=== PATIENT | female | born 1955 | race Two or more races ===

== ENCOUNTER 2019-10-17 19:09 | Inpatient (IN) | payer OTHER ==
[~2019-10-17] VITALS: Ht 170.2 cm; Wt 72.6 kg
[2019-10-17] MEDS ORDERED: METFORMIN HCL1000 M2 PO (19:25)
[2019-10-17] MEDS ORDERED: SINGULAIR10 MG PO (19:25)
[2019-10-17] MEDS ORDERED: GLIPIZIDE XL10 MG PO (19:25)
[2019-10-17] MEDS ORDERED: VENTOLIN HFA18 GM IH (19:25)
--- NOTE | 2019-10-17 19:25 | NUR ---
PT REFIERE ASMA QUE COMENZO DESDE HOY EN LA MANANA. REFIERE AN JOSE DANIEL A CDT EN LA MANANA Y AN RECIBIDO TERAPIA RESPIRATORIA ROSETTE NO TENER MEJORIA. PT SAO2 91%.SE UBICA EN ASMA UNIT.
--- NOTE | 2019-10-17 20:31 | NUR ---
PACIENTE EVALUADA POR MD EN TURNO DR. MERINO QUIEN COLOCA ORDENES MEDICAS. CorazonEugeniaANABELLEVIDYA ORIENTA PACIENTE SOBRE TRATAMIENTO ORDENADO POR MD.REFIERE COMPRENDER. COLECTA MUESTRAS DE LABORATORIOS LAS CUALES ROTULA Y ENVIA PARA ANALISIS. NOTIFICA ABGS A PERSONAL EN TURNO. ADMINISTRA MEDICAMENTOS KATIUSKA ORDENADO POR MD SIGUIENDO MEDIDAS ASEPTICAS. PACIENTE NO PRESENTA REACCION ADVERSA.
--- NOTE | 2019-10-17 21:51 | NUR ---
SE NOTIFICA AMY MASK AL 50% A PERSONAL EN TURNO.
--- NOTE | 2019-10-18 00:17 | NUR ---
PEAK FLOW NOTIFICADO A MS AMBROCIO POR MS STEVEN.
--- NOTE | 2019-10-18 04:02 | NUR ---
SE RECIBE PACIENTE ALERTA Y ORIENTADA X3 EN CAMA CON BARANDAS ELEVADAS Y CABECERA A 45 GRADOS CONECTADA A OXIMETRIA, TIENE UN V/MASK AL 50%, TIENE AREA DE VENOPUNCION PATENTE Y BRADEN DE EDEMA EN SALINE LOCK. PACIENTE ESTABLE, SE MANTIENE BAJO OBSERVACION POR CAMBIOS.
--- NOTE | 2019-10-18 07:34 | NUR ---
SE RECIBE PTE ALERTA Y ORIENTADA POR 3, LA MISMA SE ENCUENTRA CONECTADA A MONITOR CARDIACO Y OXIMETRIA DE PULSO. PTE SE OBSERVA CON VENTURY MASK 50% PTE PEND CONSULTA CON DR. Susanna RIVAS.
[2019-10-27] MEDS ORDERED: MEDROLPACK PO (14:11)
[2019-10-27] MEDS ORDERED: QVAR REDIHALE10.6 G1 IH (14:12)
[2019-10-27] MEDS ORDERED: XOPENEX0.63 MG/3 IH (14:12)
[2019-10-27] MEDS ORDERED: XOPENEX HFA15 GM IH (14:13)
== END 2019-10-27 15:08 | disposition home or self-care (01) | DRG 193 ==
LOC: ER 19:09 → ICU 10-18 10:17 → ICU-2 10-18 10:17 → ICU 10-19 21:36 → MEDJ 10-20 18:45
PROVIDERS: ADMIT Internal Medicine
PROC: BB24ZZZ Computerized Tomography (CT Scan) of Bilateral Lungs (ICD-10-PCS; principal; 2019-10-18)
PROC: 4A033R1 Measurement of Arterial Saturation, Peripheral, Percutaneous Approach (ICD-10-PCS; 2019-10-18)
PROC: 3E0F7GC Introduction of Other Therapeutic Substance into Respiratory Tract, Via Natural or Artificial Opening (ICD-10-PCS; 2019-10-18)
PROC: 8E0ZXY6 Isolation (ICD-10-PCS; 2019-10-18)
PROC: 0T9B70Z Drainage of Bladder with Drainage Device, Via Natural or Artificial Opening (ICD-10-PCS; 2019-10-18)
PROC: 4A12X4Z Monitoring of Cardiac Electrical Activity, External Approach (ICD-10-PCS; 2019-10-20)
PROC: B246ZZZ Ultrasonography of Right and Left Heart (ICD-10-PCS; 2019-10-22)
DX: J10.1 Influenza due to other identified influenza virus with other respiratory manifestations (principal); J80 Acute respiratory distress syndrome; J44.1 Chronic obstructive pulmonary disease with (acute) exacerbation; J45.41 Moderate persistent asthma with (acute) exacerbation; I47.2 Ventricular tachycardia; I08.2 Rheumatic disorders of both aortic and tricuspid valves; E11.65 Type 2 diabetes mellitus with hyperglycemia; E66.09 Other obesity due to excess calories; Z79.4 Long term (current) use of insulin

== ENCOUNTER 2021-09-21 10:04 | Emergency (ER) | payer OTHER ==
[~2021-09-21] VITALS: Ht 152.4 cm; Wt 68.5 kg
[~2021-09-21 10:04] MED LIST: GLIPIZIDE XL10 MG PO; MEDROLPACK PO; METFORMIN HCL1000 M2 PO; QVAR REDIHALE10.6 G1 IH; SINGULAIR10 MG PO; VENTOLIN HFA18 GM IH; XOPENEX HFA15 GM IH; XOPENEX0.63 MG/3 IH
== END 2021-09-21 14:48 | disposition home or self-care (01) ==
LOC: ER 10:04
DX: K29.90 Gastroduodenitis, unspecified, without bleeding (principal); J45.998 Other asthma; I10 Essential (primary) hypertension; E11.9 Type 2 diabetes mellitus without complications

== ENCOUNTER 2021-10-19 10:19 | Emergency (ER) | payer OTHER ==
[~2021-10-19] VITALS: Ht 167.6 cm; Wt 66.7 kg
== END 2021-10-19 16:16 | disposition home or self-care (01) ==
LOC: ER 10:19
DX: K52.89 Other specified noninfective gastroenteritis and colitis (principal); N39.0 Urinary tract infection, site not specified; I10 Essential (primary) hypertension; J45.998 Other asthma

== ENCOUNTER → 2022-07-30 | Emergency (ER) | payer OTHER ==
[~2022-07-30] VITALS: Ht 170.2 cm; Wt 66.7 kg
[~2022-07-30] MED LIST changes: +GLIMEPIRIDE1 MG
== END | disposition left against medical advice (07) ==
LOC: ER 17:49
DX: J45.901 Unspecified asthma with (acute) exacerbation (principal); E11.65 Type 2 diabetes mellitus with hyperglycemia; Z79.84 Long term (current) use of oral hypoglycemic drugs; I10 Essential (primary) hypertension; Z88.0 Allergy status to penicillin

== ENCOUNTER 2022-07-31 08:04 | Emergency (ER) | payer OTHER ==
[~2022-07-31] VITALS: Ht 170.2 cm; Wt 67.1 kg
== END 2022-07-31 12:41 | disposition home or self-care (01) ==
LOC: ER 08:04
DX: J45.909 Unspecified asthma, uncomplicated (principal); R06.02 Shortness of breath; R11.0 Nausea; Z88.0 Allergy status to penicillin

== ENCOUNTER 2022-11-24 13:09 | Outpatient (CLI) | payer OTHER | END 2022-11-24 13:10 | disposition home or self-care (01) | LOC: NUCLEAR 13:09 | PROVIDERS: ATTEND General Practice | DX: Z13.820 Encounter for screening for osteoporosis (principal) ==

== ENCOUNTER 2022-12-29 08:56 | Inpatient (IN) | payer OTHER ==
[~2022-12-29] VITALS: Ht 170.2 cm; Wt 68.0 kg
[2022-12-29] MEDS ORDERED: TRADJENTA5 MG (09:19)
--- NOTE | 2022-12-29 09:24 | NUR ---
PTE ALERTA Y ORIENTADA EN HARISH NAJMA ESFERAS, REFIERE ASMA LA CUAL SE LE EXACERBO EN LA MANANA DE HOY, CON TOS PRODUCTIVA, AL MOMENTO SATURANDO 92% Y [place] EN ORACIONES CORTAS, SE PRESENTA A DR JIMENEZ Y SE UBICA EN AREA DE AU.
--- NOTE | 2022-12-29 10:03 | NUR ---
SE ORIENTA PTE SOBRE EL TRATAMIENTO ORDENADO POR EL DR JIMENEZ PTE ALERTA Y ORIENTADO POR 3 SE REALIZAN MUESTRAS DE LABORTORIO Y SE ADMINISTRAN MEDICAMENTO KATIUSKA ORDENADO, SE NOTIFICA ALONZO SANJURGO SOBRE TERPIAS Y ABGS PTE SE MANTIENE EN OBSERVACION.
--- NOTE | 2022-12-29 15:25 | NUR ---
SE RECIBE PTE FEMENINA ALERTA Y ORIENTADA X3 DEL TURNO ANTERIOR, CON BUEN PATRON RESPIRATORIO Y SIN QUEJA DE DOLOR. VENOPUNCION PATENTE BRADEN DE EDEMA Y ERITEMA EN H/L. PTE ASISTIDA CON CANULA NASAL A 3LT/MIN. PENDIENTE CONSULTA CON MEDICINA INTERNA.
== END 2023-01-03 13:14 | disposition home or self-care (01) | DRG 191 ==
LOC: ER 08:56 → MEDI 17:09
PROVIDERS: ADMIT Internal Medicine; ATTEND Internal Medicine
PROC: 3E0F7SF Introduction of Other Gas into Respiratory Tract, Via Natural or Artificial Opening (ICD-10-PCS; principal; 2022-12-29)
PROC: BW24ZZZ Computerized Tomography (CT Scan) of Chest and Abdomen (ICD-10-PCS; 2022-12-30)
DX: J44.1 Chronic obstructive pulmonary disease with (acute) exacerbation (principal); J45.902 Unspecified asthma with status asthmaticus; E11.9 Type 2 diabetes mellitus without complications; R09.02 Hypoxemia; Z79.84 Long term (current) use of oral hypoglycemic drugs

== ENCOUNTER 2023-03-15 08:44 | Emergency (ER) | payer OTHER ==
[~2023-03-15] VITALS: Ht 170.2 cm; Wt 66.7 kg
[~2023-03-15 08:44] MED LIST changes: +TRADJENTA5 MG
[2023-03-15] MEDS ORDERED: ZITHROMAX500 MG PO (11:55)
[2023-03-15] MEDS ORDERED: DIABETIC SILTU118 M1 PO (11:59)
== END 2023-03-15 12:15 | disposition home or self-care (01) ==
LOC: ER 08:44
DX: J41.0 Simple chronic bronchitis (principal); E11.9 Type 2 diabetes mellitus without complications; Z79.84 Long term (current) use of oral hypoglycemic drugs; Z88.0 Allergy status to penicillin

== ENCOUNTER 2023-03-26 09:10 | Emergency (ER) | payer OTHER ==
[~2023-03-26] VITALS: Ht 170.2 cm; Wt 68.9 kg
[~2023-03-26 09:10] MED LIST changes: +DIABETIC SILTU118 M1 PO; +ZITHROMAX500 MG PO
[2023-03-26] MEDS ORDERED: FAMOTIDINE20 MG PO (09:20)
[2023-03-26] MEDS ORDERED: MEDROLPACK PO (09:37)
[2023-03-26] MEDS ORDERED: KETO10TA2 PO (09:37)
[2023-03-26] MEDS ORDERED: ORPHENADRINE C100 MG PO (09:37)
== END 2023-03-26 10:02 | disposition home or self-care (01) ==
LOC: ER 09:10
DX: M54.50 Low back pain, unspecified (principal); Z88.0 Allergy status to penicillin

== ENCOUNTER 2023-04-04 07:09 | Emergency (ER) | payer OTHER ==
[~2023-04-04] VITALS: Ht 170.2 cm; Wt 66.7 kg
[~2023-04-04 07:09] MED LIST changes: +FAMOTIDINE20 MG PO; +KETO10TA2 PO; +ORPHENADRINE C100 MG PO
== END 2023-04-04 11:05 | disposition home or self-care (01) ==
LOC: ER 07:09
DX: K59.00 Constipation, unspecified (principal); Z88.0 Allergy status to penicillin

== ENCOUNTER 2023-11-10 06:20 | Inpatient (IN) | payer OTHER ==
[~2023-11-10] VITALS: Ht 170.2 cm; Wt 66.7 kg
[2023-11-10 07:59] LABS: HEMOGLOBIN 14.8 g/dL (12.0-15.00); MEAN CELL VOLUME 88.9 fL (80.00-100.00); MEAN CORPUSCULAR HGB CONC 33.7 g/dl (32.0-36.0); PLATELET COUNT 317 K/uL (150-450); RED BLOOD COUNT 4.95 M/uL (4.00-6.00); RED CELL DISTRIBUTION WIDTH 13.2 % (11.5-14.5)
[2023-11-10 08:18] LABS: CREATININE SERUM 0.63 mg/dL (0.55-1.02); GFR 93.97; POTASSIUM 4.71 mEq/L (3.5-5.1)
[2023-11-10 09:32] LABS: ABG PH 7.412 (7.35-7.45); ABG pCO2 43.6 mmHg (35-45); BASE EXCESS 2.2 mmol/l; BICARBONATE 27.2 mmol/l (23-25); SaO2 93.9 %; Tco2 28.5 mmol/l
[2023-11-10 09:33] LABS: allen test SATISFACTORY; o2 21 %; puncture site RADIAL RIGHT
[2023-11-11 06:12] LABS: HEMATOCRIT 39.5 % (36.0-45.00); HEMOGLOBIN 13.3 g/dL (12.0-15.00); MEAN CELL VOLUME 89.5 fL (80.00-100.00); MEAN CORPUSCULAR HEMOGLOBIN 30.1 pg (27.00-32.0); MEAN CORPUSCULAR HGB CONC 33.6 g/dl (32.0-36.0); PLATELET COUNT 291 K/uL (150-450); RED BLOOD COUNT 4.42 M/uL (4.00-6.00); RED CELL DISTRIBUTION WIDTH 13.1 % (11.5-14.5)
[2023-11-11 06:50] LABS: ERYTHROCYTE SEDIMENTATION RATE 35 mm/hr
[2023-11-11 06:54] LABS: ALBUMIN 3.2 gm/dL (3.4-5.0); ALKALINE PHOSPHATASE 110 U/L (50-136); ALT/SGPT 28 U/L (12-78); ANION GAP 10 (10.0-20.0); AST/SGOT 12 U/L (15-37); BILIRUBIN TOTAL 0.38 mg/dL (0.3-1.2); BLOOD UREA NITROGEN 14 mg/dL (7-18); BUN CREA RATIO 27 (7.0-25.0); CALCIUM 9.6 mg/dL (8.5-10.1); CARBON DIOXIDE 29 mEq/L (21-32); CHLORIDE 101 mmol/L (98-107); CREATININE SERUM 0.52 mg/dL (0.55-1.02); GFR 117.26; GLOBULINA 3.3 G/DL (2.4-3.5); PHOSPHOROUS 3.3 mg/dL (2.5-4.9); SODIUM 135 mmol/L (136-145); TOTAL PROTEIN 6.5 gm/dL (6.4-8.2)
[2023-11-11 07:07] LABS: C-REACTIVE PROTEIN < 0.29 MG/DL (0.00-0.29); GLUCOSE FASTING 319 mg/dL (65-100); OSMOLALITY SERUM 283 MOSM/KG (275-295)
[2023-11-12 06:16] LABS: HEMATOCRIT 39.4 % (36.0-45.00); HEMOGLOBIN 13.3 g/dL (12.0-15.00); MEAN CELL VOLUME 89.5 fL (80.00-100.00); MEAN CORPUSCULAR HEMOGLOBIN 30.2 pg (27.00-32.0); MEAN CORPUSCULAR HGB CONC 33.7 g/dl (32.0-36.0); PLATELET COUNT 276 K/uL (150-450); RED BLOOD COUNT 4.41 M/uL (4.00-6.00); RED CELL DISTRIBUTION WIDTH 12.8 % (11.5-14.5)
[2023-11-12 07:15] LABS: ALBUMIN 3.1 gm/dL (3.4-5.0); ALKALINE PHOSPHATASE 107 U/L (50-136); ALT/SGPT 31 U/L (12-78); ANION GAP 8 (10.0-20.0); AST/SGOT 14 U/L (15-37); BILIRUBIN TOTAL 0.28 mg/dL (0.3-1.2); BLOOD UREA NITROGEN 21 mg/dL (7-18); BUN CREA RATIO 36 (7.0-25.0); CALCIUM 9.3 mg/dL (8.5-10.1); CARBON DIOXIDE 30 mEq/L (21-32); CHLORIDE 102 mmol/L (98-107); CREATININE SERUM 0.59 mg/dL (0.55-1.02); GFR 101.36; GLOBULINA 3.2 G/DL (2.4-3.5); PHOSPHOROUS 3.4 mg/dL (2.5-4.9); POTASSIUM 4.79 mEq/L (3.5-5.1); SODIUM 135 mmol/L (136-145); TOTAL PROTEIN 6.3 gm/dL (6.4-8.2)
[2023-11-12 07:17] LABS: C-REACTIVE PROTEIN < 0.29 MG/DL (0.00-0.29); GLUCOSE FASTING 357 mg/dL (65-100); OSMOLALITY SERUM 287 MOSM/KG (275-295)
[2023-11-15 07:49] LABS: HEMATOCRIT 39.7 % (36.0-45.00); HEMOGLOBIN 13.4 g/dL (12.0-15.00); MEAN CELL VOLUME 89.8 fL (80.00-100.00); MEAN CORPUSCULAR HEMOGLOBIN 30.4 pg (27.00-32.0); MEAN CORPUSCULAR HGB CONC 33.8 g/dl (32.0-36.0); PLATELET COUNT 294 K/uL (150-450); RED BLOOD COUNT 4.42 M/uL (4.00-6.00); RED CELL DISTRIBUTION WIDTH 12.9 % (11.5-14.5)
[2023-11-16 12:06] LABS: HEMATOCRIT 43.4 % (36.0-45.00); HEMOGLOBIN 14.5 g/dL (12.0-15.00); MEAN CELL VOLUME 88.2 fL (80.00-100.00); MEAN CORPUSCULAR HEMOGLOBIN 29.4 pg (27.00-32.0); MEAN CORPUSCULAR HGB CONC 33.3 g/dl (32.0-36.0); PLATELET COUNT 338 K/uL (150-450); RED BLOOD COUNT 4.92 M/uL (4.00-6.00); RED CELL DISTRIBUTION WIDTH 13.5 % (11.5-14.5)
[2023-11-16 12:39] LABS: ALBUMIN 3.1 gm/dL (3.4-5.0); BILIRUBIN TOTAL 0.49 mg/dL (0.3-1.2); CALCIUM 9.7 mg/dL (8.5-10.1); CREATININE SERUM 0.62 mg/dL (0.55-1.02); GFR 95.72; GLOBULINA 3.3 G/DL (2.4-3.5); POTASSIUM 4.04 mEq/L (3.5-5.1); TOTAL PROTEIN 6.4 gm/dL (6.4-8.2)
[2023-11-17] MEDS ORDERED: LORATADINE10 MG PO (08:37)
[2023-11-17] MEDS ORDERED: MONTELUKAST SOD10 MG PO (08:38)
[2023-11-17] MEDS ORDERED: NORFLEX100MG PO (08:38)
[2023-11-17] MEDS ORDERED: VENTOLIN HFA18 GM IH (08:38)
[2023-11-17] MEDS ORDERED: COZAAR50 MG PO (08:38)
[2023-11-17] MEDS ORDERED: FLONASE16 GM NASAL (08:39)
[2023-11-17] MEDS ORDERED: FAMOTIDINE20 MG PO (08:39)
[2023-11-17] MEDS ORDERED: Lantus 1000 UNITS/10 SUBCUTANEO (08:40)
[2023-11-17] MEDS ORDERED: INSULIN LI100 UNIT/1 SUBCUTANEO (08:40)
[2023-11-17] MEDS ORDERED: MEDROLPACK PO (08:41)
[2023-11-17] MEDS ORDERED: METFORMIN HCL1000 M2 PO (08:41)
[2023-11-17] MEDS ORDERED: TRADJENTA5 MG PO (08:41)
[2023-11-17] MEDS ORDERED: GILTUSS DIABET118 ML PO (08:42)
[2023-11-17] MEDS ORDERED: CEFDINIR300 MG PO (08:43)
== END 2023-11-17 10:09 | disposition home or self-care (01) | DRG 191 ==
LOC: ER 06:20 → SEC-K 13:34 → MEDJ 13:34
PROVIDERS: Internal Medicine; Internal Medicine Infectious Disease; ADMIT Internal Medicine; ATTEND Internal Medicine
PROC: BB24ZZZ Computerized Tomography (CT Scan) of Bilateral Lungs (ICD-10-PCS; principal; 2023-11-10)
PROC: 3E0F7GC Introduction of Other Therapeutic Substance into Respiratory Tract, Via Natural or Artificial Opening (ICD-10-PCS; 2023-11-10)
DX: J44.1 Chronic obstructive pulmonary disease with (acute) exacerbation (principal); J45.41 Moderate persistent asthma with (acute) exacerbation; E11.649 Type 2 diabetes mellitus with hypoglycemia without coma; R09.02 Hypoxemia; Z72.0 Tobacco use; Z79.4 Long term (current) use of insulin; E78.49 Other hyperlipidemia

== ENCOUNTER 2024-06-08 07:28 | Emergency (ER) | payer OTHER ==
[~2024-06-08] VITALS: Ht 170.2 cm; Wt 72.6 kg
[~2024-06-08 07:28] MED LIST changes: +CEFDINIR300 MG PO; +COZAAR50 MG PO; +FLONASE16 GM NASAL; +GILTUSS DIABET118 ML PO; +INSULIN LI100 UNIT/1 SUBCUTANEO; +LORATADINE10 MG PO; +Lantus 1000 UNITS/10 SUBCUTANEO; +MONTELUKAST SOD10 MG PO; +NORFLEX100MG PO; +TRADJENTA5 MG PO
[2024-06-08] MEDS ORDERED: ALBUTEROL SULFATE 3 ML/2.5 MG AMPUL.NEB IH STA (08:26)
[2024-06-08] MEDS ORDERED: IPRATROPIUM BROMIDE 0.5 MG/2.5 ML AMPUL.NEB IH STA (08:26)
[2024-06-08] MEDS ORDERED: IPRATROPIUM BROMIDE 0.5 MG/2.5 ML AMPUL.NEB IH ONE (08:45)
[2024-06-08] MEDS ORDERED: ALBUTEROL SULFATE 3 ML/2.5 MG AMPUL.NEB IH ONE (08:45)
== END 2024-06-08 08:54 | disposition home or self-care (01) ==
LOC: ER 07:28
DX: J06.9 Acute upper respiratory infection, unspecified (principal); J45.909 Unspecified asthma, uncomplicated; Z88.0 Allergy status to penicillin